=== PATIENT | male | born 1965 ===

== ENCOUNTER 2016-07-19 12:30 | Day surgery (SDC) | payer MEDICAID ==
[~2016-07-19] VITALS: Ht 175.3 cm; Wt 154.5 kg
--- NOTE | ~2016-07-19 | OP ---
PATIENT NAME: JOHN BEATTY MEDICAL RECORD: [id number] :67 LOCATION:D.OPS ADMISSION DATE: SURGEON: HONORIO LERNER DO DATE OF OPERATION: 07/19/2016 PROCEDURE: Colonoscopy with biopsies and stool collection. INDICATION: Right-sided abdominal pain and abnormal findings on CT (colitis). SCOPE: [employer] video pediatric colonoscope. MEDICATIONS: Propofol 380 mg IV per anesthesia. Withdrawal time 8 minutes. COMPLICATIONS: None. ESTIMATED BLOOD LOSS: Minimal. FINDINGS: Informed consent was given. The patient was made comfortable with the above medication. After reaching an adequate level of sedation by slow IV push, the patient was placed on his left side. A digital rectal examination was performed, and was normal. The endoscope was then advanced under direct visualization through the anus to the terminal ileum. The scope was slowly withdrawn and the mucosa was carefully examined. In the rectum, retroflexion was performed. There were no abnormalities visualized on the mucosal surface. There was no evidence of colitis, thickening of the colon, erosions, ulcers or other abnormalities. Random biopsies were taken in the ascending colon. Stool was collected to submit for infectious etiologies of previously abnormal CT findings. The scope was withdrawn from the patient. The patient tolerated the procedure well, and there were no complications. IMPRESSION: Normal colonoscopy status post random biopsies of the ascending colon and stool collection. PLAN AND RECOMMENDATIONS: 1. Discharge home when recovery parameters are met. 2. Continue current medications. 3. Continue current diet. 4. We will need to obtain results of CT and laboratory. 5. Further recommendations pending results of labs and CT review. 6. Follow up with primary care as previously scheduled. 7. Follow up on biopsy specimens and stool studies. TRANSINT:[id number] Voice Confirmation ID: [id number] DOCUMENT ID: [id number] HONORIO LERNER DO CC: [id number] DICTATION DATE: 07/19/16 1656 [employer] RENTAL CLERK: 07/19/16 [id number] [facility] 07/19/[address] [id number]
[2016-07-19 13:10] LABS: BASOPHILS 0.3 % (0-2); EOSINOPHILS 1.8 % (0-7); HEMATOCRIT 36.8 % (42.0-54.0); HEMOGLOBIN 11.9 g/dL (13.5-17.5); IMMATURE GRANULOCYTES 0.3 % (0-5); MCH 28.1 pg (26.0-34.0); MCHC 32.3 g/dL (31.0-37.0); MCV 86.8 fL (80.0-100.0); MEAN PLATELET VOLUME 9.6 fL (7.4-10.4); MONOCYTES 10.5 % (2-11); NEUTROPHILS 53.1 % (40-80); PLATELET COUNT 206 10x3/uL (130-400); RBC 4.24 10x6/uL (4.20-6.10); RDW 14.2 % (11.5-14.5); WBC 3.8 10x3/uL (4.8-10.8)
[2016-07-19 13:24] VITALS: BP 125/75; Ht 175.3 cm; Wt 154.5 kg
[2016-07-19 13:45] LABS: ANION GAP 11.2 mmol/L (8-16); CALCIUM 9.5 mg/dL (8.5-10.1); CARBON DIOXIDE 27.9 mmol/L (21.0-32.0); CREATININE - SERUM 1.6 mg/dL (0.6-1.3); POTASSIUM - SERUM 4.1 mmol/L (3.5-5.1)
== END 2016-07-19 17:50 | disposition home or self-care (01) ==
LOC: D.OPS 12:30
PROVIDERS: Anesthesiology; Internal Medicine Gastroenterology
DX: K52.89 Other specified noninfective gastroenteritis and colitis (principal); Z01.812 Encounter for preprocedural laboratory examination